=== PATIENT | male | born 1950 | race Hispanic/Latino ===

== ENCOUNTER → 2023-09-18 | Outpatient (CLI) | payer MEDICARE | END | disposition home or self-care (01) | LOC: RAH 15:08 | PROVIDERS: ATTEND Family Medicine | DX: S43.421A Sprain of right rotator cuff capsule, initial encounter (principal); M19.011 Primary osteoarthritis, right shoulder; X58.XXXA Exposure to other specified factors, initial encounter; Y93.89 Activity, other specified; Y92.89 Other specified places as the place of occurrence of the external cause; Y99.8 Other external cause status | CPT/HCPCS: 73030 ==